=== PATIENT | male | born 1995 | race Caucasian/White ===

== ENCOUNTER 2017-02-09 20:24 | Emergency (ER) | payer SELFPAY ==
[~2017-02-09] VITALS: Ht 182.9 cm; Wt 70.3 kg
--- NOTE | 2017-02-09 22:39 | ED Lower Extremity ---
General Chief Complaint: Lower Extremity Stated Complaint: L ANKLE INJ Nursing Triage Note: pt c/o left ankle injury playing basketball last night. swelling et ecchymoses noted. Nursing Sepsis Screen: No Definite Risk Source: patient Exam Limitations: no limitations History of Present Illness Time seen by provider: 22:39 Initial Comments 21-year-old male patient presents to the emergency department complaints of left ankle pain after playing basketball yesterday evening. Reports twisting the left ankle on a curb. Now complains of swelling, pain, and ecchymosis to the left ankle. Onset: yesterday Pain/Injury Location: left ankle Method of Injury: sports injury, twisted Modifying Factors: Worse With Movement Allergies and Home Medications Allergies Coded Allergies: No Known Drug Allergies (Unverified , 02/09/17) Home Medications Sulfamethoxazole/Trimethoprim 1 Each Tablet, 1 EACH PO BID, #14 Ref 0 Prescribed by: HINA KUO on 02/09/17 2321 Tramadol HCl 50 Mg Tablet, 50 MG PO Q6H PRN for PAIN-MILD TO MODERATE, #14 Ref 0 Prescribed by: HINA KUO on 02/09/17 2259 Constitutional: no symptoms reported Musculoskeletal: see HPI, joint pain, joint swelling Skin: change in color Psychiatric/Neurological: Denies Numbness, Denies Paresthesia, Denies Tingling , Denies Weakness All Other Systems Reviewed Negative Unless Noted: Yes (Negative excepted noted.) Past [place] Hx Patient Social History Recent Foreign Travel: No Contact w/Someone Who Travel: No Recent Infectious Disease Expo: No Respiratory History of Respiratory Disorde: No Cardiovascular History of Cardiac Disorders: No Neurological History of Neurological Disord: No Musculoskeletal History of Musculoskeletal Dis: No Integumentary History of Skin or Integumenta: No Reviewed Nursing Assessment Reviewed/Agree w Nursing PMH: Yes Family Medical History Significant Family History: No Pertinent Family Hx Physical Exam Vital Signs Vital Sign - Last 12Hours 02/09/17 21:19 Temp 96.9 Pulse 93 Resp 16 B/P (MAP) 112/56 (74) Capillary Refill : Less Than 3 Seconds General Appearance: WD/WN, no apparent distress Cardiovascular: normal peripheral pulses, no edema Legs: bilateral leg non-tender, bilateral leg normal inspection, bilateral leg normal range of motion, bilateral leg no evidence of injury Knees: bilateral knee non-tender, bilateral knee normal inspection, bilateral knee normal range of motion, bilateral knee no evidence of injury Ankles: right ankle non-tender, right ankle normal inspection, right ankle normal range of motion, right ankle no evidence of injury, left ankle bone tenderness (greatest tenderness on the lateral malleolus. Mild tenderness of the medial malleolus.), left ankle ecchymosis, left ankle limited range of motion, left ankle pain, left ankle soft tissue tenderness, left ankle swelling , left ankle other (faint erythema and warmth of the anterior and lateral left ankle) Feet: bilateral foot non-tender, right foot normal inspection, bilateral foot normal range of motion, bilateral foot no evidence of injury, left foot ecchymosis (ecchymosis just inferior to the left lateral malleolus with minimal soft tissue tenderness) Neurologic/Tendon: normal sensation, normal motor functions, normal tendon functions, responds to pain, no evidence tendon injury Neurologic/Psychiatric: no motor/sensory deficits, alert, normal mood/affect, oriented x 3 Skin: normal color, warm/dry, ecchymosis (left lateral ankle and proximal foot just inferior to the lateral malleolus.) Progress/Results/Core Measures Results/Orders My Orders Orders - HINA KUO Ankle, Left, 3 Views (02/09/17 22:17) Rx-Tramadol Hcl (Rx-Ultram) (02/09/17 22:56) Crutches (02/09/17 22:56) Steplite (02/09/17 22:56) Rx-Trimeth/Sulfameth Ds Tab (Rx-Bactrim/ (02/09/17 23:00) Vital Signs/I&O Vital Sign - Last 12Hours 02/09/17 21:19 Temp 96.9 Pulse 93 Resp 16 B/P (MAP) 112/56 (74) Blood Pressure Mean: 74 Diagnostic Imaging Diagonstic Imaging: Xray Plain Films/CT/US/NM/MRI: ankle Comments Tiny avulsion fracture noted of the lateral malleolus Reviewed: Reviewed/Discussed (with Dr. Brown) Departure Communication (Admissions) Progress Notes Diagnostic findings discussed with the patient. Patient placed in a step light boot and given crutches as well as instruction on crutches. Plan for discharge to home with follow-up as an outpatient with Dr. Kincaid. 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 Impression Impression: Primary Impression: Closed avulsion fracture of left ankle Qualified Codes: S82.892A - Other fracture of left lower leg, initial encounter for closed fracture Additional Impression: Cellulitis of left ankle Disposition: 01 HOME, SELF-CARE Condition: Improved Departure-Patient Inst. Decision time for Depature: 22:57 Referrals: KENNY KINCAID MD,LOCAL PHYSICIAN (PCP) Primary Care Physician Patient Instructions: Ankle Fracture (DC) Add. Discharge Instructions: All discharge instructions reviewed with patient and/or family. Voiced understanding. Medications as instructed. Tylenol extra strength over-the- counter as directed for pain. Elevate the left ankle on pillows above the level of the heart. Follow-up with Dr. Kincaid an outpatient for recheck within the next 7 days. Crutches and walking boot as instructed. Return to the emergency department for worsened symptoms or any other concerns. Scripts Sulfamethoxazole/Trimethoprim (Bactrim Ds Tablet) 1 Each Tablet 1 EACH PO BID, #14 TAB 0 Refills Prov: HINA KUO 02/09/17 Tramadol HCl (Tramadol HCl) 50 Mg Tablet 50 MG PO Q6H Y for PAIN-MILD TO MODERATE, #14 TAB 0 Refills Prov: HINA KUO 02/09/17 HINA KUO Feb 09, 2017 22:39
[2017-02-09] MEDS ORDERED: RX-TRAMADOL 50 MG (ULTRAM) TAB PPK#4 PO STA (22:56)
[2017-02-09] MEDS ORDERED: SULF1TAB35 PO ×2 (22:59→23:21)
[2017-02-09] MEDS ORDERED: TRAM50TA2 PO (22:59)
[2017-02-09] MEDS ORDERED: RX-TRIMETH/SULFA. 160-800 MG (BACTRIM DS) TAB PPK#2 PO STA (23:00)
[2017-02-09 23:03] VITALS: BP 112/56
--- NOTE | 2017-02-10 07:42 | Diagnostic Imaging Report ---
ANKLE, LEFT, 3 VIEWS COMPARISON: None available. INDICATION: Ankle pain TECHNIQUE: Non-weight bearing AP, oblique, and lateral views. FINDINGS: Tiny hyperdensity along the lateral aspect of the lateral malleolus does not have a definitive donor site. Otherwise, no acute fracture. Moderate soft tissue swelling of the lateral ankle is noted. No traumatic malalignment. IMPRESSION: 1. No definitive acute fracture. 2. Tiny hyperdense focus along the lateral aspect of the lateral malleolus has no definitive donor site and may be artifactual. Soft tissue injury to the peroneal retinaculum could have this appearance. Dictated by: Dictated on workstation # [id number]
== END 2017-02-09 23:03 | disposition home or self-care (01) ==
LOC: ER 20:26
DX: S82.892A Other fracture of left lower leg, initial encounter for closed fracture (principal); L03.116 Cellulitis of left lower limb; X50.0XXA Overexertion from strenuous movement or load, initial encounter; Y93.67 Activity, basketball
CPT/HCPCS: 73610; 99283